=== PATIENT | female | born 1935 | race Caucasian/White ===

== ENCOUNTER → 2023-03-28 | Outpatient (REF) | payer MEDICARE, MEDICAID, SELFPAY ==
--- OUTSIDE RECORDS SUMMARY | 2023-03-28 03:51 | XMS RPT_ITS | CCD ---
Author Name Unknown Address [address] [place] [address] Organization [facility] Care Team Providers Care Cashier Receptionist Name Role Phone Eneida Lan Unavailable Eneida Lan Unavailable Carmella Alberto Unavailable Unavailable Allergies Allergy Classification Reported Allergen(s) Allergy Type Date of Onset Reaction(s) Facility (3 sources) vancomycin drug allergy 07-13-2010 [facility] Work Phone: (3 sources) HCTZ drug allergy 07-13-2010 [facility] Work Phone: Medications Completed/Discontinued Medications Medication Drug Class(es) Dates Sig (Normalized) Sig (Original) alendronic acid 35 mg oral tablet (12 sources) Bisphosphonate Start: 07-22-2013 End: 04-07-2015 take 1 tablet by mouth every week ALENDRONATE SODIUM 35 MG TABS one tablet by mouth weekly ALENDRONATE SODIUM [id number] Kirsten Summers, AMANDA AMLODIPINE BESY-BENAZEPRIL HCL (6 sources) Dihydropyridine Calcium Channel Hanyn, Angiotensin Converting Enzyme Inhibitor Start: 07-13-2010 take 1 tablet by mouth once daily LOTREL 10-40 MG CAPS One tablet by mouth daily AMLODIPINE BESY-BENAZEPRIL HCL [id number] [facility] Problems Active Problems Problem Classification Problem Date Documented Date Episodic/Chronic Acute myocardial infarction (3 sources) Non-ST elevation (NSTEMI) myocardial infarction; Translations: [Non-ST elevation (NSTEMI) myocardial infarction] Onset: 03-09-2015 03-09-2015 Chronic Cardiac dysrhythmias (3 sources) Conduction disorder of the heart; Translations: [Cardiac arrhythmia, unspecified] Onset: 07-13-2010 07-13-2010 Chronic Coronary atherosclerosis and other heart disease (20 sources) Preinfarction syndrome; Translations: [Coronary arteriosclerosis] Onset: 07-13-2010 Resolved: 03-09-2015 07-13-2010 Chronic Diabetes mellitus without complication (3 sources) Type 2 diabetes mellitus; Translations: [Type 2 diabetes mellitus without complications] Onset: 12-15-2014 12-15-2014 Chronic Disorders of lipid metabolism (3 sources) Hyperlipidemia; Translations: [Hyperlipidemia, unspecified] Onset: 07-13-2010 07-13-2010 Chronic Esophageal disorders (3 sources) Gastroesophageal reflux disease; Translations: [Gastro-esophageal reflux disease without esophagitis] Onset: 07-13-2010 07-13-2010 Chronic Essential hypertension (3 sources) Hypertensive disorder; Translations: [Essential (primary) hypertension] Onset: 07-13-2010 07-13-2010 Chronic Other nutritional; endocrine; and metabolic disorders (12 sources) Body mass index (BMI) 40.0-44.9, adult; Translations: [Body mass index (BMI) 38.0-38.9, adult] Onset: 01-03-2013 Resolved: 03-09-2015 01-03-2013 Chronic Unclassified (3 sources) Placement of stent in coronary artery ; Translations: [Presence of coronary angioplasty implant and graft] Onset: 03-06-2015 01-28-2016 Past or Other Problems Problem Classification Problem Date Documented Da te Episodic/Chronic Complications of surgical procedures or medical care (6 sources) Hematoma complicating a procedure; Translations: [Hematoma complicating a procedure] Onset: 07-13-2010 Resolved: 03-09-2015 07-13-2010 Episodic Coronary atherosclerosis and other heart disease (9 sources) Presence of coronary angioplasty implant and graft; Translations: [Coronary angioplasty status] Onset: 07-13-2010 Resolved: 03-09-2015 03-06-2015 Episodic Crushing injury or internal injury (6 sources) Injury to other specified blood vessels of upper extremity; Translations: [Injury to other specified blood vessels of upper extremity] Onset: 07-13-2010 Resolved: 03-09-2015 07-13-2010 Episodic Deficiency and other anemia (3 sources) Normocytic hypochromic anemia; Translations: [Iron deficiency anemia, unspecified] Onset: 07-13-2010 07-13-2010 Episodic Fluid and electrolyte disorders (6 sources) Hyperkalemia; Translations: [Hyperkalemia] Onset: 07-13-2010 Resolved: 07-06-2015 07-06-2015 Episodic Other aftercare (3 sources) Other termination clerk (current) drug therapy; Translations: [Other assisted (current) drug therapy] Onset: 07-13-2010 07-13-2010 Episodic Other circulatory disease (3 sources) History of myocardial infarction; Translations: [Old myocardial infarction] Onset: 07-13-2010 07-13-2010 Episodic Syncope (5 sources) Near syncope; Translations: [Vasovagal syncope] Onset: 12-15-2014 07-29-2016 Episodic Unclassified (9 sources) Family history of ischemic heart disease and other diseases of the circulatory system; Translations: [Family history of sudden ] Resolved: 03-09-2015 02-19-2014 Episodic Results Test Name Value Interpretation Reference Range Facil ity Vital Signs Date Time Vital Sign Value Performing Clinician Karon nicole 01-29-2016 10:24-0400 BMI (Body Mass Index) 37.88 kg/m2 [employer] DeFinis [facility] Work Phone: 01-29-2016 10:24-0400 BP Diastolic 62 mm[Hg] Harumi DeFinis [facility] Work Phone: 01-29-2016 10:24-0400 BP Systolic 126 mm[Hg] Harumi DeFinis [facility] Work Phone: 01-29-2016 10:24-0400 BSA (Body Surface Area) 1.84 m2 Harumi DeFinis [facility] Work Phone: 01-29-2016 10:24-0400 Height 152.4 cm Harumi DeFinis [facility] Work Phone: 01-29-2016 10:24-0400 Pulse (Heart Rate) 56 /min Harumi DeFinis [facility] Work Phone: 01-29-2016 10:24-0400 Respiratory Rate 20 /min Harumi DeFinis [facility] Work Phone: 01-29-2016 10:24-0400 Weight 88 kg Harumi DeFinis [facility] Work Phone: 04-08-2015 12:59-0500 Pulse Oximetry 96 % Harumi DeFinis [facility] Work Phone: Procedures Date Procedure Procedure Detail Performing Clinician Start: 07-29-2016 End: 07-29-2016 TIMOTHY Love PA-C Work Phone: Start: 07-29-2016 End: 07-29-2016 Follow Up Appt 6 months Eduarda larsen PA-C Work Phone: Start: 01-29-2016 End: 01-29-2016 *Hepatic Function Panel Kathleen Ibarra Start: 01-29-2016 End: 01-29-2016 Follow Up Appt 6 months Kathleen Ibarra Start: 01-29-2016 End: 01-29-2016 Lipid panel [AGGREGATE] Kathleen Ibarra Start: 01-29-2016 End: 01-29-2016 MMM Vega Patel MD Start: 01-25-2016 End: 02-02-2016 *Hepatic Function Panel Eduarda larsen PA-C Work Phone: Start: 01-25-2016 End: 02-02-2016 Lipid panel [AGGREGATE] Eduarda larsen PA-C Work Phone: Start: 07-21-2015 End: 07-21-2015 TIMOTHY Love PA-C Work Phone: Start: 07-21-2015 End: 07-21-2015 Follow Up Appt 6 months Eduarda larsen PA-C Work Phone: Start: 04-08-2015 End: 07-19-2016 Cardiac Rehab Vega Patel MD Start: 04-08-2015 End: 04-08-2015 Electrocardiogram, complete Vega Patel MD Start: 04-08-2015 End: 04-08-2015 Follow Up Appt 3 months Kathleen Ibarra Start: 04-08-2015 End: 04-08-2015 JERRY Patel MD Start: 03-06-2015 End: 04-08-2015 Cardiac Rehab Vega Patel MD Start: 11-24-2014 End: 11-24-2014 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 Eduarda Love PA-C Work Phone: Start: 11-24-2014 End: 11-25-2014 Documentation of current medications Eduarda Love PA-C Work Phone: Start: 11-24-2014 End: 11-24-2014 Electrocardiogram, complete Eduarda Love PA-C Work Phone: Start: 11-24-2014 End: 11-24-2014 Follow Up Appt 6 months Eduarda laresn PA-C Work Phone: Start: 11-24-2014 End: 07-23-2015 Lipid panel [AGGREGATE] Eduarda larsen PA-C Work Phone: Start: 02-19-2014 End: 02-19-2014 Follow Up Appt 6 months Kathleen Ibarra Start: 02-19-2014 End: 02-19-2014 JERRY Patel MD Start: 07-22-2013 End: 07-22-2013 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 Eduarda Love PA-C Work Phone: Start: 07-22-2013 End: 07-22-2013 Follow Up Appt 6 months Eduarda larsen PA-C Work Phone: Start: 07-22-2013 End: 07-22-2013 Follow Up Appt Other Eduarda gray PA-C Work Phone: Start: 01-03-2013 End: 01-03-2013 Follow Up Appt 6 months Kathleen Ibarra Start: 01-03-2013 End: 01-03-2013 MMKathleen Patle MD Start: 2012 End: 07-16-2013 *Hepatic Function Panel Jae graves MD Start: 2012 End: 07-16-2013 Lipid panel [AGGREGATE] Jae graves MD Start: 06-19-2012 End: 06-19-2012 Follow Up Appt 6 months Jae graves MD Start: 02-29-2012 End: 04-05-2012 *Hepatic Function Panel Jae graves MD Start: 02-29-2012 End: 04-05-2012 Lipid panel [AGGREGATE] Jae graves MD Start: 11-29-2011 End: 11-29-2011 Follow Up Appt 6 months Jae graves MD Start: 07-27-2011 End: 11-29-2011 *Hepatic Function Panel Jae graves MD Start: 07-27-2011 End: 11-29-2011 Lipid panel [AGGREGATE] Jae graves MD Start: 04-18-2011 End: 04-28-2011 *Hepatic Function Panel Jae graves MD Start: 04-18-2011 End: 04-18-2011 Follow Up Appt 6 months Jae graves MD Start: 04-18-2011 End: 04-28-2011 Lipid panel [AGGREGATE] Jae graves MD Plan of Treatment Date Care Activity Detail Author Start: 01-31-2017 End: 01-31-2017 Appointment Appointment [facility] Work Phone: Start: 07-29-2016 End: 07-29-2016 Appointment Appointment [facility] Work Phone: Start: 07-29-2016 End: 07-29-2016 Carotid duplex Carotid duplex [facility] Work Phone: Start: 07-29-2016 End: 07-29-2016 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 [facility] Work Phone: Start: 07-29-2016 End: 07-29-2016 Follow Up Appt 6 months Follow Up Appt 6 months [facility] Work Phone: Start: 07-28-2016 End: 02-02-2016 *Hepatic Function Panel *Hepatic Function Panel [facility] Work Phone: Start: 07-28-2016 End: 02-02-2016 Lipid panel [AGGREGATE] *Lipid Profile CC PCP [facility] Work Phone: Start: 01-29-2016 End: 01-29-2016 *Hepatic Function Panel *Hepatic Function Panel [facility] Work Phone: Start: 01-29-2016 End: 01-29-2016 Follow Up Appt 6 months Follow Up Appt 6 months [facility] Work Phone: Start: 01-29-2016 End: 01-29-2016 Lipid panel [AGGREGATE] *Lipid Profile CC PCP [facility] Work Phone: Start: 01-29-2016 End: 01-29-2016 MMM MMM [facility] Work Phone: Start: 01-25-2016 End: 02-02-2016 *Hepatic Function Panel *Hepatic Function Panel [facility] Work Phone: Start: 01-25-2016 End: 02-02-2016 Lipid panel [AGGREGATE] *Lipid Profile CC PCP [facility] Work Phone: Start: 07-21-2015 End: 07-21-2015 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 [facility] Work Phone: Start: 07-21-2015 End: 07-21-2015 Follow Up Appt 6 months Follow Up Appt 6 months [facility] Work Phone: Start: 04-08-2015 End: 07-19-2016 Cardiac Rehab Cardiac Rehab [facility] Work Phone: Start: 04-08-2015 End: 04-08-2015 Electrocardiogram, complete EKG (In office) [facility] Work Phone: Start: 04-08-2015 End: 04-08-2015 Follow Up Appt 3 months Follow Up Appt 3 months [facility] Work Phone: Start: 04-08-2015 End: 04-08-2015 MMM MMM [facility] Work Phone: Start: 03-06-2015 End: 03-06-2015 Cardiac Rehab Card[facility] Rehab [address] [place] [address] [facility] Work Phone: Start: 11-24-2014 End: 11-24-2014 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 [facility] Work Phone: Start: 11-24-2014 End: 11-24-2014 Electrocardiogram, complete EKG (In office) [facility] Work Phone: Start: 11-24-2014 End: 11-24-2014 Follow Up Appt 6 months Follow Up Appt 6 months [facility] Work Phone: Start: 11-24-2014 End: 07-23-2015 Lipid panel [AGGREGATE] *Lipid Profile CC PCP [facility] Work Phone: Start: 02-19-2014 End: 02-19-2014 Follow Up Appt 6 months Follow Up Appt 6 months [facility] Work Phone: Start: 02-19-2014 End: 02-19-2014 MMM MMM [facility] Work Phone: Start: 07-22-2013 End: 07-22-2013 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 [facility] Work Phone: Start: 07-22-2013 End: 07-22-2013 Follow Up Appt 6 months Follow Up Appt 6 months [facility] Work Phone: Start: 07-22-2013 End: 07-22-2013 Follow Up Appt Other Follow Up Appt Other [facility] Work Phone: Start: 01-03-2013 End: 01-03-2013 Follow Up Appt 6 months Follow Up Appt 6 months [facility] Work Phone: Start: 01-03-2013 End: 01-03-2013 MMM MMM [facility] Work Phone: Start: 2012 End: 07-16-2013 *Hepatic Function Panel *Hepatic Function Panel [facility] Work Phone: Start: 2012 End: 07-16-2013 Lipid panel [AGGREGATE] *Lipid Profile [facility] Work Phone: Start: 06-19-2012 End: 06-19-2012 Follow Up Appt 6 months Follow Up Appt 6 months [facility] Work Phone: Start: 02-29-2012 End: 04-05-2012 *Hepatic Function Panel *Hepatic Function Panel [facility] Work Phone: Start: 02-29-2012 End: 04-05-2012 Lipid panel [AGGREGATE] *Lipid Profile [facility] Work Phone: Start: 11-29-2011 End: 11-29-2011 Follow Up Appt 6 months Follow Up Appt 6 months [facility] Work Phone: Start: 07-27-2011 End: 04-29-2011 *Hepatic Function Panel *Hepatic Function Panel [facility] Work Phone: Start: 07-27-2011 End: 04-29-2011 Lipid panel [AGGREGATE] *Lipid Profile [facility] Work Phone: Start: 04-18-2011 End: 04-28-2011 *Hepatic Function Panel *Hepatic Function Panel [facility] Work Phone: Start: 04-18-2011 End: 04-18-2011 Follow Up Appt 6 months Follow Up Appt 6 months [facility] Work Phone: Start: 04-18-2011 End: 04-28-2011 Lipid panel [AGGREGATE] *Lipid Profile [facility] Work Phone: Patient Education [facility] Work Phone: Additional Source Comments FOR RECORDS PERTAINING TO PATIENTS WHO ARE OR HAVE BEEN ENROLLED IN A CHEMICAL DEPENDENCY/SUBSTANCEABUSE PROGRAM, SOME INFORMATION MAY BE OMITTED. This clinical summary was aggregated from multiple sources. Caution should be exercised in using it in the provision of clinical care. This summary normalizes information from multiple sources, and as a consequence, information in this document may materially change the coding, format and clinical context of patient data. In addition, data may be omitted in some cases. CLINICAL DECISIONS SHOULD BE BASED ON THE PRIMARY CLINICAL RECORDS. [facility]. provides no warranty or guarantee of the accuracy or completeness of information in this document.
[2023-03-28 07:14] LABS: Hematocrit 37.9 % (37-47); Hemoglobin 11.6 g/dL (12.0-15.0); Mean Corp Hgb Conc 30.6 g/dL (32-36); Mean Corpuscular Volume 94.8 fL (81-99); Mean Platelet Vol. 10.7 fl (6.2-12.0); Platelet Count 137 K/mm3 (150-450); RBC Distribution Width CV 13.9 % (11.6-14.6); RBC Distribution Width SD 48.7 fl (35.1-43.9); White Blood Count 3.5 K/mm3 (4.4-11.0)
[2023-03-28 07:25] LABS: Anion Gap 2 (5-15); BUN 25 mg/dL (7-18); Calcium,Total 10.3 mg/dL (8.5-10.1); Chloride 112 mmol/L (98-107); Creatinine, Serum 1.04 mg/dL (0.55-1.02); EST Glomerular Filtration Rate 53 mL/min (>60); Est Glom Filt Rate - Afr Amer 64 mL/min (>60); Glucose 103 mg/dL (74-106); Potassium 5.1 mmol/L (3.5-5.1); Sodium Level 141 mmol/L (136-145)
[2023-03-28 07:49] LABS: Hemoglobin A1c 5.4 % (3.8-5.6)
== END ==
LOC: OLS.WCC 04:00
PROVIDERS: PCP Family Medicine; Referring Provider Family Medicine; Visit Provider Family Medicine
DX: F03.90 Unspecified dementia, unspecified severity, without behavioral disturbance, psychotic disturbance, mood disturbance, and anxiety (principal); E11.9 Type 2 diabetes mellitus without complications; I10 Essential (primary) hypertension; Z79.899 Other long term (current) drug therapy
CPT/HCPCS: 36415; 80048; 83036; 85027

== ENCOUNTER → 2023-06-29 | Outpatient (REF) | payer MEDICARE, MEDICAID, SELFPAY ==
[2023-06-29 07:56] LABS: Anion Gap 3 (5-15); BUN 22 mg/dL (7-18); BUN/Creat Ratio 18.6 RATIO (10-20); Calcium,Total 9.1 mg/dL (8.5-10.1); Chloride 113 mmol/L (98-107); Creatinine, Serum 1.18 mg/dL (0.55-1.02); EST Glomerular Filtration Rate 46 mL/min (>60); Est Glom Filt Rate - Afr Amer 55 mL/min (>60); Glucose 84 mg/dL (74-106); Potassium 4.4 mmol/L (3.5-5.1); Sodium Level 141 mmol/L (136-145)
[2023-06-29 08:11] LABS: Hematocrit 25.5 % (37-47); Hemoglobin 7.5 g/dL (12.0-15.0); Mean Corp Hgb Conc 29.4 g/dL (32-36); Mean Corpuscular Volume 91.7 fL (81-99); Mean Platelet Vol. 9.8 fl (6.2-12.0); Platelet Count 138 K/mm3 (150-450); RBC Distribution Width CV 15.4 % (11.6-14.6); RBC Distribution Width SD 51.8 fl (35.1-43.9); Red Blood Count 2.78 M/mm3 (4.2-5.4); White Blood Count 2.7 K/mm3 (4.4-11.0)
== END ==
LOC: OLS.WCC 07:33
PROVIDERS: PCP Family Medicine; Visit Provider Family Medicine
DX: F03.90 Unspecified dementia, unspecified severity, without behavioral disturbance, psychotic disturbance, mood disturbance, and anxiety (principal); E11.9 Type 2 diabetes mellitus without complications; I10 Essential (primary) hypertension; Z79.899 Other long term (current) drug therapy
CPT/HCPCS: 36415; 80048; 85027